=== PATIENT | female | born 1985 | race African-American/Black ===

== ENCOUNTER 2017-02-20 12:36 | Emergency (ER) | payer OTHER ==
[~2017-02-20] VITALS: Ht 165.1 cm; Wt 90.7 kg
[~2017-02-20 12:36] MED LIST: ZOFRAN ODT4 MG PO
[2017-02-20] MEDS ORDERED: DICLOFENAC POTA50 M1 PO (14:14)
[2017-02-20] MEDS ORDERED: AMOXICILLIN500 M2 PO (14:14)
--- NOTE | 2017-02-20 14:15 | ED THROAT/DENTAL COMPLAINT ---
History of Present Illness General Chief Complaint: Sore Throat, Dental Pain Stated Complaint: SORE THROAT Source: patient Exam Limitations: no limitations Vital Signs & Intake/Output Vital Signs & Intake/Output Vital Signs Date Time Temp Pulse Resp B/P B/P Pulse O2 O2 Flow FiO2 Mean Ox Delivery Rate 02/20 1247 98.9 100 18 111/72 96 Room Air Allergies Coded Allergies: NO KNOWN ALLERGIES (08/19/14) Reconcile Medications Ondansetron (Zofran Odt) 4 MG TAB.RAPDIS 1 TAB PO Q8HR PRN NAUSEA Triage Note: PT COMPLAINS OF SORE THROAT X 2 DAYS Triage Nurses Notes Reviewed? yes : No Patient currently breastfeeds: No HPI: Patient presents for evaluation of gradual onset of constant severe achy sore throat pain gets worse with swallowing that began Friday. She has had associated fever and some vomiting. She denies any known ill contacts. Past History Travel History Traveled to [place] past 21 day No Medical History Any Pertinent Medical History? 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 No Review of Systems Review of Systems Constitutional: Reports: no symptoms. EENTM: Reports: see HPI. Respiratory: Reports: no symptoms. Cardiovascular: Reports: no symptoms. GI: Reports: no symptoms. Genitourinary: Reports: no symptoms. Musculoskeletal: Reports: no symptoms. Skin: Reports: no symptoms. Neurological/Psychological: Reports: no symptoms. Hematologic/Endocrine: Reports: no symptoms. Immunologic/Allergic: Reports: no symptoms. All Other Systems: Reviewed and Negative Physical Exam Physical Exam Mouth/Throat: sEE BELOW Comments: Gen.: Well-nourished, well-developed, no acute respiratory distress. Head: Normocephalic, atraumatic. Eyes: Normal inspection bilaterally Ears: Normal inspection bilaterally Nose: Normal inspection Throat/mouth : Moist mucosa, oropharyngeal erythema with white exudates and no uvular deviation Neck: Supple, full range of motion, no goiter, mildly tender anterior lymphadenopathy present Lungs: Quiet respirations Back: Normal range of motion Extremities: Normal range of motion grossly Neurologic: Cranial nerves grossly intact, speech is clear Skin: warm and dry Psychiatric: Calm, cooperative, no apparent delusions or hallucinations Core Measures ACS in differential dx? No Severe Sepsis Present: No Septic Shock Present: No Progress Differential Diagnosis: jorge-tonsillar abscess, strep pharyngitis Plan of Care: Orders Procedure Date/time Status THROAT CULTURE W/QUICK STREP 02/20 1249 Complete Departure Departure Disposition: HOME OR SELF CARE Condition: Stable Clinical Impression Primary Impression: Streptococcal pharyngitis Referrals: PATIENT HAS NO PRIMARY CARE DR (PCP/Family) Additional Instructions: Diclofenac as prescribed for pain. Cool liquids to help soothe your throat. Amoxicillin as prescribed. Follow-up with your primary care doctor in 72 hours if not improving. Return if any concerns or sudden worsening. Thank you for choosing the [facility] Department for your care. It was a pleasure to serve you today. Parmjit Baer M.D. [facility] Departure Forms: Customer Survey General Discharge Information Prescriptions: Current Visit Scripts Amoxicillin 1 TAB PO TID #21 TAB Diclofenac Potassium 1 TAB PO TID PRN PAIN #21 TAB
[2017-02-20 14:31] VITALS: BP 116/80
== END 2017-02-20 14:31 ==
LOC: ERH 12:36
DX: J02.0 Streptococcal pharyngitis (principal); Z72.0 Tobacco use

== ENCOUNTER 2018-04-04 10:44 | Emergency (ER) | payer OTHER ==
[~2018-04-04 10:44] MED LIST changes: +AMOXICILLIN500 M2 PO; +DICLOFENAC POTA50 M1 PO
--- NOTE | 2018-04-04 10:47 | ED GI/GU/ABDOMINAL COMPLAINT ---
History of Present Illness General Chief Complaint: Female Urogenital Problems Stated Complaint: VAG BLEEDING Source: patient Exam Limitations: no limitations Vital Signs & Intake/Output Vital Signs & Intake/Output Vital Signs Date Time Temp Pulse Resp B/P B/P Pulse O2 O2 Flow FiO2 Mean Ox Delivery Rate 04/04 1111 100 Room Air 04/04 1053 98.0 76 18 122/73 100 Room Air Allergies Coded Allergies: NO KNOWN ALLERGIES (04/04/18) Reconcile Medications Amoxicillin 500 MG CAPSULE 1 TAB PO TID INFECTION Diclofenac Potassium 50 MG TABLET 1 TAB PO TID PRN PAIN Triage Nurses Notes Reviewed? yes ? N Is pt currently ? No Onset: Gradual Duration: constant Timing: recent history Quality/Severity: cramping, moderate Severity Numbers: 5 Radiation: no radiation HPI: Patient is a 32-year-old female with a past medical history of iron deficiency anemia who is noncompliant with her iron supplementation who presents emergency room with concerns of a late menstrual period last menstrual period was noted to be February 23 where patient states that yesterday she had a gradual onset of denies abdominal cramping and persistent vaginal bleeding patient has gone through 2 pads. Patient was brought in by ambulance. Patient has associated symptoms of dizziness. Patient TOOK IBUPROFEN yesterday. Denies any fever chills chest pain arm pain jaw pain Patient is able to tolerate by mouth no change in symptoms. Last bowel movement was within the last 24 hours no blood no melena Past History Medical History Any Pertinent Medical History? 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 No Review of Systems Review of Systems Constitutional: Reports: see HPI. EENTM: Reports: no symptoms. Respiratory: Reports: no symptoms. Cardiovascular: Reports: no symptoms. GI: Reports: see HPI. Genitourinary: Reports: see HPI. Musculoskeletal: Reports: no symptoms. Skin: Reports: no symptoms. Neurological/Psychological: Reports: no symptoms. Hematologic/Endocrine: Reports: see HPI, bleeding. Immunologic/Allergic: Reports: no symptoms. All Other Systems: Reviewed and Negative Physical Exam Physical Exam General Appearance: no apparent distress, alert, comfortable, obese Head: atraumatic Eyes: Bilateral: normal appearance. Ears, Nose, Throat, Mouth: moist mucous membrane Neck: normal inspection Respiratory: normal breath sounds Cardiovascular: regular rate/rhythm Gastrointestinal: normal bowel sounds, soft, tenderness Extremities: normal range of motion Skin: intact, normal color, warm/dry Core Measures ACS in differential dx? No Sepsis Present: No Sepsis Focused Exam Completed? No Progress Differential Diagnosis: AAA, AMI, appendicitis, biliary colic, bowel obstruction , colon cancer, cholecystitis, diverticulitis, ectopic , endometritis, esophageal varices, gastritis, hepatitis, hernia, hemorrhoids, ischemic bowel, inflamm bowel dis, intrauterine , kidney stone, ovarian cyst, ovarian torsion, pancreatitis, PID/cervicitis, peptic ulcer, PUD/GERD, perforated viscous, SBO, threatened AB, UTI/pyelo Plan of Care: Orders Procedure Date/time Status URINALYSIS 04/04 105 Active HUMAN BETA HCG SCREEN 04/04 105 Complete COMPREHENSIVE METABOLIC PANEL 04/04 105 Complete CBC WITHOUT DIFFERENTIAL 04/04 105 Complete Laboratory Tests 04/04/18 1107: Anion Gap 9, Estimated GFR > 60, BUN/Creatinine Ratio 24.0, Glucose 94, Calcium 8.7, Total Bilirubin 0.5, AST 13 L, ALT 22, Alkaline Phosphatase 60, Total Protein 6.6, Albumin 3.8, Globulin 2.8, Albumin/Globulin Ratio 1.4, Total Beta HCG NEGATIVE, CBC w Diff NO MAN DIFF REQ, RBC 3.84 L, MCV 78.5 L, MCH 24.6 L, MCHC 31.4 L, RDW 18.1 H, MPV 7.8, Gran % 62.8, Lymphocytes % 27.5, Monocytes % 6.8, Eosinophils % 2.6, Basophils % 0.3, Absolute Granulocytes 3.9, Absolute Lymphocytes 1.7, Absolute Monocytes 0.4, Absolute Eosinophils 0.2, Absolute Basophils 0 Patient upon initial presentation is resting calmly at bedside vital signs unremarkable patient is normotensive Patient's blood work was unremarkable Discussed results with patient due to history of present illness and exam findings patient has suspicion of dysmenorrhea No concerns of appendicitis No right lower quadrant pain no peritoneal signs Patient afebrile Patient was strongly advised to continue taking iron supplementation and follow up with [facility] Upon discharge patient looks well no prior distress Patient was offered and advised a exam however she declines this IN the emergency room patient had improvement of pain with ibuprofen Initial ED EKG: none Departure Departure Disposition: HOME OR SELF CARE Condition: Stable Clinical Impression Primary Impression: Vaginal bleeding Secondary Impressions: Abdominal pain, Dysmenorrhea Referrals: Patient Has No Primary Care Dr (PCP/Family) Jamal CHEN,Oksana Buckner Additional Instructions: As discussed if symptoms worsen or if YOU develop a new concerning symptom return to emergency, follow up and establish [facility] Dr. Berry on Friday. Begin [id number] ibuprofen for pain and inflammation Departure Forms: Customer Survey General Discharge Information
[2018-04-04 11:32] LABS: ABSOLUTE BASOPHIL COUNT 0 /CUMM (0.0-0.2); ABSOLUTE EOSINOPHIL COUNT 0.2 /CUMM (0.0-0.7); ABSOLUTE GRANULOCYTE CT 3.9 /CUMM (1.4-6.5); ABSOLUTE LYMPH COUNT 1.7 /CUMM (1.2-3.4); ABSOLUTE MONOCYTE COUNT 0.4 /CUMM (0.10-0.60); BASOPHIL % 0.3 % (0.0-2.0); EOSINOPHIL % 2.6 % (0-5); GRANULOCYTE % 62.8 % (42.2-75.2); HEMATOCRIT 30.1 % (37-47); MEAN CORPUSCULAR HGB 24.6 PG (27.0-31.0); MEAN CORPUSCULAR HGB CONC 31.4 G/DL (33.0-37.0); MEAN CORPUSCULAR VOLUME 78.5 FL (81.0-99.0); MEAN PLATELET VOLUME 7.8 FL (7.4-10.4); PLATELET COUNT 376 /CUMM (130-400); RBC DISTRIBUTION WIDTH 18.1 % (11.5-14.5); RED BLOOD CELL CT 3.84 /CUMM (4.20-5.40); WHITE BLOOD CELL COUNT 6.3 /CUMM (4.8-10.8)
[2018-04-04 12:12] VITALS: BP 106/56
== END 2018-04-04 12:23 ==
LOC: ERH 10:44
PROVIDERS: Physician Assistant
DX: N94.6 Dysmenorrhea, unspecified (principal)
CPT/HCPCS: 81001

== ENCOUNTER 2018-06-07 08:01 | Emergency (ER) | payer OTHER ==
[~2018-06-07] VITALS: Ht 167.6 cm; Wt 77.1 kg
[2018-06-07 09:43] LABS: ABSOLUTE BASOPHIL COUNT 0 /CUMM (0.0-0.2); ABSOLUTE EOSINOPHIL COUNT 0.2 /CUMM (0.0-0.7); ABSOLUTE GRANULOCYTE CT 4.5 /CUMM (1.4-6.5); ABSOLUTE MONOCYTE COUNT 0.4 /CUMM (0.10-0.60); BASOPHIL % 0.7 % (0.0-2.0); EOSINOPHIL % 2.2 % (0-5); GRANULOCYTE % 63.6 % (42.2-75.2); HEMATOCRIT 29.1 % (37-47); MEAN CORPUSCULAR HGB 24.7 PG (27.0-31.0); MEAN CORPUSCULAR HGB CONC 31.5 G/DL (33.0-37.0); MEAN CORPUSCULAR VOLUME 78.3 FL (81.0-99.0); MEAN PLATELET VOLUME 8.4 FL (7.4-10.4); PLATELET COUNT 324 /CUMM (130-400); RBC DISTRIBUTION WIDTH 16.7 % (11.5-14.5); RED BLOOD CELL CT 3.72 /CUMM (4.20-5.40)
--- NOTE | 2018-06-07 11:28 | CT SCAN REPORT ---
EXAMINATION: CT ABDOMEN AND PELVIS WITH CONTRAST CLINICAL INFORMATION: Periumbilical abdominal pain an swelling with discharge status post umbilical hernia repair 5 years ago. COMPARISON: 05/25/12. 05/16/12. TECHNIQUE: Multidetector volumetric imaging was performed of the abdomen and pelvis following IV administration of 95 mL of Optiray 320 intravenous contrast. Sagittal and coronal reformatted images were obtained on the technologist's workstation. DLP: 702.04 mGy-cm FINDINGS: LUNG BASES: The visualized lung bases are unremarkable. LIVER, GALLBLADDER, AND BILIARY TREE: The liver is normal in size, shape, and attenuation. No focal hepatic lesion or biliary ductal dilatation is present. The gallbladder is unremarkable with no evidence of radiopaque gallstones, gallbladder wall thickening, or obvious pericholecystic inflammatory changes. PANCREAS: Unremarkable. SPLEEN: Unremarkable. ADRENAL GLANDS: Unremarkable. KIDNEYS AND URETERS: The kidneys are normal in size, shape, and attenuation. No hydronephrosis, hydroureter, or calculi seen. No perinephric stranding. A small hypoattenuating cortical lesion in the upper pole of the right kidney measures 0.9 cm and is too small to characterize but likely represents cyst. This is minimally increased from the CT scan of 05/16/12. BLADDER: Unremarkable. GASTROINTESTINAL TRACT: The stomach and duodenum are unremarkable. No abnormality of the small bowel or mesentery is demonstrated. The colon is unremarkable. The appendix is normal. ABDOMINAL WALL: There is soft tissue thickening around the umbilicus. There is a very small defect in the underlying fascia with no significant recurrent hernia. No contained fluid collection is demonstrated. Scattered densities in the anterior abdominal wall presumably represent calcification from previous subcutaneous injections. LYMPH NODES: There 2 mildly enlarged right inguinal lymph nodes. The largest measures 2.0 x 1.3 cm. No other adenopathy. VASCULAR: Unremarkable. PELVIC VISCERA: Unremarkable. There is a cyst in the left ovary measuring 2.9 cm. OSSEOUS STRUCTURES: Unremarkable. IMPRESSION: 1. Nonspecific soft tissue swelling around the umbilicus. There is a very small fascial defect at the site of previous hernia repair with no significant recurrent hernia. No focal fluid collection. 2. Nonspecific right inguinal lymphadenopathy. 3. Small cyst right kidney.
--- NOTE | 2018-06-07 11:48 | ED GI/GU/ABDOMINAL COMPLAINT ---
History of Present Illness General Chief Complaint: Abdominal Pain/Flank Pain Stated Complaint: BIBA ABD PAIN, LEAKING WOUND Source: patient Exam Limitations: no limitations Vital Signs & Intake/Output Vital Signs & Intake/Output Vital Signs Date Time Temp Pulse Resp B/P B/P Pulse O2 O2 Flow FiO2 Mean Ox Delivery Rate 06/07 1243 98.1 74 16 108/57 96 Room Air 06/07 1018 97.2 80 18 110/66 96 Room Air 06/07 0808 97.2 76 20 108/72 98 Room Air ED Intake and Output 06/08 0000 06/07 1200 Intake Total Output Total Balance Patient 170 lb Weight Weight Estimated Measurement Method Allergies Coded Allergies: NO KNOWN ALLERGIES (04/04/18) Reconcile Medications Amoxicillin 500 MG CAPSULE 1 TAB PO TID INFECTION Diclofenac Potassium 50 MG TABLET 1 TAB PO TID PRN PAIN Ibuprofen 800 MG TABLET 1 TAB PO TID PRN PAIN Sulfamethoxazole/Trimethoprim (Bactrim Ds Tablet) 800 MG-160 MG TABLET 1 TAB PO BID CELLULITIS/ABSCESS Triage Note: PT BIBA TO ED FOR C/O ABD PAIN WITH WAKING THIS AM. C/O LOWER ABD LEAKING FROM [place] [place]. THINKS HER HERNIA INSICION FROM 2012 IS LEAKING. PT STATES SHE VOMITED X 1 THIS AM. Triage Nurses Notes Reviewed? yes LMP (ages 10-50): unknown ? n Is pt currently ? No Onset: Abrupt Duration: day(s):, constant, continues in ED Timing: single episode today Quality/Severity: sharpness Severity Numbers: 6 Location: periumbilical Radiation: no radiation Activities at Onset: none Prior Abdominal Problems: similar symptoms HPI: 32-year-old female history of anemia presents for evaluation of periumbilical abdominal pain. Patient reports she has a history of umbilical hernia repair surgery and a umbilical hernia revision surgery done in 2012. She states she has had no problems in this area until she woke up today. She reports pain and discharge (the Local Area. She Also Reports Some Swelling. The Pain Is Worse with Touching the Area. She States the Pain Started While She Was at Rest There Is No Heavy Lifting Straining or Bending. No Fevers. She Reports Some Nausea and One Episode of Vomiting No Diarrhea. No Chest Pain Shortness of Breath. She Is Not a Diabetic. Past History Travel History Traveled to [place] past 21 day No Medical History Any Pertinent Medical History? 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 No Review of Systems Review of Systems Constitutional: Reports: no symptoms. EENTM: Reports: no symptoms. Respiratory: Reports: no symptoms. Cardiovascular: Reports: no symptoms. GI: Reports: see HPI, abdominal pain, nausea, vomiting. Genitourinary: Reports: no symptoms. Musculoskeletal: Reports: no symptoms. Skin: Reports: no symptoms. Neurological/Psychological: Reports: no symptoms. Hematologic/Endocrine: Reports: no symptoms. Immunologic/Allergic: Reports: no symptoms. All Other Systems: Reviewed and Negative Physical Exam Physical Exam General Appearance: well developed/nourished, no apparent distress, alert, awake Head: atraumatic, normal appearance Eyes: Bilateral: normal appearance, EOMI. Ears, Nose, Throat, Mouth: moist mucous membrane Neck: normal inspection, supple, full range of motion Respiratory: normal breath sounds, chest non-tender, no respiratory distress, lungs clear Cardiovascular: regular rate/rhythm, normal peripheral pulses Peripheral Pulses: 2+ radial (R), 2+ radial (L) Gastrointestinal: normal bowel sounds, soft, no organomegaly, tenderness, there is some clear discharge coming from the periumbilical area. Is also some soft tissue swelling and induration in the periumbilical area. No erythema no focal fluctuant areas. No palpable hernia. No evidence of tinea. No erythema Back: normal inspection, normal range of motion, no vertebral tenderness Extremities: normal range of motion Neurologic/Psych: no motor/sensory deficits, awake, alert, oriented x 3, normal gait Skin: intact, normal color, warm/dry Core Measures ACS in differential dx? No Sepsis Present: No Sepsis Focused Exam Completed? No Progress Differential Diagnosis: appendicitis, biliary colic, hernia, incarcerated hernia , strangulated hernia, cellulitis, abscess, tinea Plan of Care: Orders Procedure Date/time Status LACTIC ACID 06/07 0920 Complete Add-on Test (ER Only) 06/07 917 Active URINE 06/07 906 Complete URINALYSIS 06/07 906 Complete LIPASE 06/07 906 Complete HUMAN BETA HCG SCREEN 06/07 906 Complete COMPREHENSIVE METABOLIC PANEL 06/07 906 Complete CBC WITHOUT DIFFERENTIAL 06/07 906 Complete Laboratory Tests 06/07/18 1212: Lactic Acid Cancelled 06/07/18 1137: Urine Color YEL, Urine Clarity CLEAR, Urine pH 6.0, Ur Specific [place] 1.015, Urine Protein NEG, Urine Ketones NEG, Urine Nitrite NEG, Urine Bilirubin NEG, Urine Urobilinogen 0.2, Ur Leukocyte Esterase NEG, Ur Microscopic EXAM NOT REQUIRED, Urine Hemoglobin NEG, Urine Glucose NEG, Urine Test NEGATIVE 06/07/18 09: Anion Gap 5, Estimated GFR > 60, BUN/Creatinine Ratio 30.0 H, Glucose 93, Lactic Acid 0.8, Calcium 8.8, Total Bilirubin 0.2, AST 10 L, ALT 17, Alkaline Phosphatase 52, Total Protein 6.3, Albumin 3.6, Globulin 2.7, Albumin/Globulin Ratio 1.3, Lipase 111, Total Beta HCG NEGATIVE, CBC w Diff NO MAN DIFF REQ, RBC 3.72 L, MCV 78.3 L, MCH 24.7 L, MCHC 31.5 L, RDW 16.7 H, MPV 8.4, Gran % 63.6, Lymphocytes % 28.5, Monocytes % 5.0, Eosinophils % 2.2, Basophils % 0.7, Absolute Granulocytes 4.5, Absolute Lymphocytes 2.0, Absolute Monocytes 0.4, Absolute Eosinophils 0.2, Absolute Basophils 0 06/07/18 0912: Lactic Acid Cancelled Patient is here with periumbilical abdominal pain and some discharge from the umbilicus. On exam she does have some soft tissue swelling and tenderness to the umbilicus. There is some clear discharge. Patient is afebrile. appears well. Labs CT scan ordered patient medicated with Toradol. Labs unremarkable. CT scan shows some nonspecific soft tissue swelling in the area and umbilicus without fluid collection. There is a small fascial defect without hernia. Patient will be covered with antibiotics due to the possibility of a small cellulitis or abscess. Considered the possibility of tinea also considered possibility of a hernia that has reduced itself through the fascial defect. Patient was covered with Bactrim. Advised to apply warm compresses. Avoid straining. Follow-up with Dr. Ortiz who did her surgery a few years ago. Discussed return precautions patient agrees the plan Diagnostic Imaging: Viewed by Me: CT Scan. Discussed w/RAD: CT Scan. Radiology Impression: PATIENT: XANDER SOTO PRESENT AGE: 32 PATIENT ACCOUNT NO: [id number] : 86 LOCATION: [facility] ORDERING PHYSICIAN: Bronson NGUYỄN SERVICE DATE: 06/07/18 EXAM TYPE: CAT - CT ABD & PELVIS W IV CONTRAST EXAMINATION: CT ABDOMEN AND PELVIS WITH CONTRAST CLINICAL INFORMATION: Periumbilical abdominal pain an swelling with discharge status post umbilical hernia repair 5 years ago. COMPARISON: 05/25/12. 05/16/12. TECHNIQUE: Multidetector volumetric imaging was performed of the abdomen and pelvis following IV administration of 95 mL of Optiray 320 intravenous contrast. Sagittal and coronal reformatted images were obtained on the technologist's workstation. DLP: 702.04 mGy-cm FINDINGS: LUNG BASES: The visualized lung bases are unremarkable. LIVER, GALLBLADDER, AND BILIARY TREE: The liver is normal in size, shape, and attenuation. No focal hepatic lesion or biliary ductal dilatation is present. The gallbladder is unremarkable with no evidence of radiopaque gallstones, gallbladder wall thickening, or obvious pericholecystic inflammatory changes. PANCREAS: Unremarkable. SPLEEN: Unremarkable. ADRENAL GLANDS: Unremarkable. KIDNEYS AND URETERS: The kidneys are normal in size, shape , and attenuation. No hydronephrosis, hydroureter, or calculi seen. No perinephric stranding. A small hypoattenuating cortical lesion in the upper pole of the right kidney measures 0.9 cm and is too small to characterize but likely represents cyst. This is minimally increased from the CT scan of 05/16/12. BLADDER: Unremarkable. GASTROINTESTINAL TRACT: The stomach and duodenum are unremarkable. No abnormality of the small bowel or mesentery is demonstrated. The colon is unremarkable. The appendix is normal. ABDOMINAL WALL: There is soft tissue thickening around the umbilicus. There is a very small defect in the underlying fascia with no significant recurrent hernia. No contained fluid collection is demonstrated. Scattered densities in the anterior abdominal wall presumably represent calcification from previous subcutaneous injections. LYMPH NODES: There 2 mildly enlarged right inguinal lymph nodes. The largest measures 2.0 x 1.3 cm. No other adenopathy. VASCULAR: Unremarkable. PELVIC VISCERA: Unremarkable. There is a cyst in the left ovary measuring 2.9 cm. OSSEOUS STRUCTURES: Unremarkable. IMPRESSION: 1. Nonspecific soft tissue swelling around the umbilicus. There is a very small fascial defect at the site of previous hernia repair with no significant recurrent hernia. No focal fluid collection. 2. Nonspecific right inguinal lymphadenopathy. 3. Small cyst right kidney. DICTATED BY: Payton Rai MD DATE/TIME DICTATED:06/07/181103 MAGNETO SPECIALIST:TYE DATE/TIME TRANSCRIBED:06/07/181103 CONFIDENTIAL, DO NOT COPY WITHOUT APPROPRIATE AUTHORIZATION. <Electronically signed in Other Vendor System> SIGNED BY: Payton Rai MD 06/07/18 1128 Initial ED EKG: none Departure Departure Disposition: HOME OR SELF CARE Condition: Stable Clinical Impression Primary Impression: Abdominal pain Qualifiers: Abdominal location: periumbilical Qualified Code: R10.33 - Periumbilical pain Referrals: Patient Has No Primary Care Dr (PCP/Family) Additional Instructions: Take antibiotics as directed for the full course. Apply warm compresses for 15- 20 minutes every few hours. Ibuprofen 800 mg every 8 hours with food as needed for pain. Make a follow-up with your primary care doctor and Dr. Ortiz as soon as possible. If you have worsening pain and redness fever or any other concerns return immediately. Please go over all results of today's visit with your primary care doctor. Contact your primary care doctor to let them know you were here in the emergency room. There may be nonspecific findings which may not be related to your visit today here in the emergency room but may require further evaluation and chronic monitoring by your primary care doctor. If you had a laceration today the chance of foreign body always remains. You should follow-up with your primary care doctor for recheck in 3-5 days for a wound check. If you had an x-ray done there is a chance that a fracture could have been missed on initial read and you should follow-up with your primary care doctor for repeat x-rays if symptoms persist. If your blood pressure was elevated here in the emergency room please have rechecked by [facility] primary care doctor within the next 48. If you were prescribed a narcotic here in the emergency room or any type of controlled substances you're not allowed to drive while taking this medication or operate any type of heavy machinery. Narcotics can make you feel lightheaded dizziness nausea and can cause constipation. You may need to oyster picker a stool softener. Thank you for choosing [facility] emergency room. Please return to the emergency room immediately if you have any other concerns worsening of symptoms. Departure Forms: Customer Survey General Discharge Information Prescriptions: Current Visit Scripts Ibuprofen 1 TAB PO TID PRN PAIN #30 TAB Sulfamethoxazole/Trimethoprim (Bactrim Ds Tablet) 1 TAB PO BID #20 TAB
[2018-06-07] MEDS ORDERED: IBUPROFEN800 M1 PO (12:17)
[2018-06-07] MEDS ORDERED: BACTRIM DS TAB1 EACH PO (12:17)
[2018-06-07 12:43] VITALS: BP 108/57
[2018-06-08] MEDS ORDERED: ULTRAM50 M1 PO (11:37)
== END 2018-06-07 12:53 ==
LOC: ERH 08:01
PROVIDERS: Physician Assistant Medical
DX: R10.33 Periumbilical pain (principal); F17.210 Nicotine dependence, cigarettes, uncomplicated; D64.9 Anemia, unspecified
CPT/HCPCS: 74177; 81003; 81025; 96374; J1885

== ENCOUNTER 2018-06-08 07:02 | Emergency (ER) | payer OTHER ==
[~2018-06-08] VITALS: Ht 167.6 cm; Wt 77.1 kg
[~2018-06-08 07:02] MED LIST changes: +BACTRIM DS TAB1 EACH PO; +IBUPROFEN800 M1 PO
--- NOTE | 2018-06-08 07:36 | ED GI/GU/ABDOMINAL COMPLAINT ---
History of Present Illness General Chief Complaint: Abdominal Pain/Flank Pain Stated Complaint: PT BIBA C/O ABD PAIN Source: patient, old records Exam Limitations: no limitations Vital Signs & Intake/Output Vital Signs & Intake/Output Vital Signs Date Time Temp Pulse Resp B/P B/P Pulse O2 O2 Flow FiO2 Mean Ox Delivery Rate 06/08 0853 98.9 75 20 128/88 99 Room Air 06/08 0703 98.8 76 16 126/92 99 Allergies Coded Allergies: NO KNOWN ALLERGIES (04/04/18) Reconcile Medications Ibuprofen 800 MG TABLET 1 TAB PO TID PRN PAIN Sulfamethoxazole/Trimethoprim (Bactrim Ds Tablet) 800 MG-160 MG TABLET 1 TAB PO BID CELLULITIS/ABSCESS Triage Note: PT BIBA FOR C/O WORSENING ABDOMINAL PAIN AND ONE EPISODE OF +N/V THIS AM. PT WAS SEEN IN ED YESTERDAY FOR ABD PAIN, DX WITH UMBILICAL AREA ABCESS VS CELLULITIS. WAS DISCHARGED ON BACTRIM DS. TOOK ONME DOSE LAST NIGHT "AND IT TORE UP MY STOMACH" STATES DID NOT TAKE BACTRIM THIS AM. "I HAD TO PUSH FOR MY STOOL THIS MORNING AND THAT MADE MY BELLY PAIN WORSE" Triage Nurses Notes Reviewed? yes ? n Is pt currently ? No HPI: Patient presents for evaluation of a periumbilical abdominal pain. She was evaluated in the [facility] emergency department yesterday for similar pain. She had blood tests, urinalysis and a CAT scan of the abdomen with no definitive diagnosis made. The patient was sent home taking ibuprofen and Bactrim. Patient states that after having a bowel movement this morning she had an increase in her periumbilical pain. She vomited once this morning ( nonbilious, nonbloody). Patient states that there was some redness surrounding the umbilicus yesterday she was therefore placed on antibiotic. She states she did have an episode of grayish discharge from the umbilicus this morning. Past History Travel History Traveled to [place] past 21 day No Medical History Any Pertinent Medical History? 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 No Review of Systems Review of Systems Constitutional: Reports: no symptoms. EENTM: Reports: no symptoms. Respiratory: Reports: no symptoms. Cardiovascular: Reports: no symptoms. GI: Reports: see HPI. Genitourinary: Reports: no symptoms. Musculoskeletal: Reports: no symptoms. Skin: Reports: no symptoms. Neurological/Psychological: Reports: no symptoms. Hematologic/Endocrine: Reports: no symptoms. Immunologic/Allergic: Reports: no symptoms. All Other Systems: Reviewed and Negative Physical Exam Physical Exam Gastrointestinal: see below Comments: Gen.: Well-nourished, well-developed, no acute respiratory distress. Head: Normocephalic, atraumatic. Eyes: Normal inspection bilaterally Ears: Normal inspection bilaterally Nose: Normal inspection Throat/mouth : Moist mucosa Neck: Supple, full range of motion, no goiter Lungs: Quiet respirations Abdomen: Soft, mild periumbilical tenderness without rebound or guarding, no umbilical hernia present. Back: Normal range of motion Extremities: Normal range of motion grossly, no cyanosis clubbing or edema of the upper extremities Neurologic: Cranial nerves grossly intact, speech is clear Skin: warm and dry, no abdominal erythema Psychiatric: Calm, cooperative, no apparent delusions or hallucinations Core Measures ACS in differential dx? No Sepsis Present: No Sepsis Focused Exam Completed? No Progress Differential Diagnosis: umbilical hernia, abdominal cellulitis, periumbilical abscess, urinary could fistula Plan of Care: Orders Procedure Date/time Status CBC WITHOUT DIFFERENTIAL 06/08 0743 Complete Laboratory Tests 06/08/18 0800: CBC w Diff NO MAN DIFF REQ, RBC 3.61 L, MCV 78.6 L, MCH 25.0 L, MCHC 31.8 L, RDW 16.9 H, MPV 7.8, Gran % 56.8, Lymphocytes % 33.2, Monocytes % 5.8, Eosinophils % 2.6, Basophils % 1.6, Absolute Granulocytes 3.5, Absolute Lymphocytes 2.0, Absolute Monocytes 0.4, Absolute Eosinophils 0.2, Absolute Basophils 0.1 Initial ED EKG: none Comments: 06/08/2018 10:45:18 AM I have discussed this patient's case with Dr. Ortiz who reviewed his prior surgical reports and the CAT scan. He feels the patient can be seen in follow-up in his office. I have updated Neto on this plan. Departure Departure Disposition: HOME OR SELF CARE Condition: Stable Clinical Impression Primary Impression: Periumbilical abdominal pain Referrals: Patient Has No Primary Care Dr (PCP/Family) Additional Instructions: Continue the ibuprofen and Bactrim as prescribed. You may add tramadol if necessary for pain. Follow-up with Dr. Ortiz this week for reevaluation of your abdominal pain. Return if any concerns or sudden worsening. Please note that there might be incidental findings in your evaluation that are unrelated to the current emergency department visit. Please notify your primary care doctor about this emergency department visit in order to obtain and review all of the testing performed so that these incidental findings can be monitored as needed. If you had an x-ray performed, please understand that some fractures or other findings may not be seen on the initial set of x-rays. If your symptoms persist you might need a repeat set of x-rays to check for such a fracture. If you had a laceration evaluated, please understand that foreign bodies such as glass or wood may not be visible to the naked eye or on plain x-rays. If the wound becomes red, swollen, increasingly more painful or if there is any drainage from the wound, please have it reevaluated by a physician for the possibility of a retained foreign body. If you do not currently have a primary care physician then please contact the [facility] care practice at the following phone number: . If you're unable to follow up as outlined in the discharge instructions please return to the emergency department. Thank you for choosing the [facility] Emergency Department for your care. It was a pleasure to serve you today. Parmjit Baer M.D. [facility] Departure Forms: Customer Survey General Discharge Information
[2018-06-08 08:06] LABS: ABSOLUTE BASOPHIL COUNT 0.1 /CUMM (0.0-0.2); ABSOLUTE EOSINOPHIL COUNT 0.2 /CUMM (0.0-0.7); ABSOLUTE GRANULOCYTE CT 3.5 /CUMM (1.4-6.5); ABSOLUTE MONOCYTE COUNT 0.4 /CUMM (0.10-0.60); BASOPHIL % 1.6 % (0.0-2.0); EOSINOPHIL % 2.6 % (0-5); GRANULOCYTE % 56.8 % (42.2-75.2); HEMATOCRIT 28.4 % (37-47); MEAN CORPUSCULAR HGB CONC 31.8 G/DL (33.0-37.0); MEAN CORPUSCULAR VOLUME 78.6 FL (81.0-99.0); MEAN PLATELET VOLUME 7.8 FL (7.4-10.4); PLATELET COUNT 335 /CUMM (130-400); RBC DISTRIBUTION WIDTH 16.9 % (11.5-14.5); RED BLOOD CELL CT 3.61 /CUMM (4.20-5.40); WHITE BLOOD CELL COUNT 6.2 /CUMM (4.8-10.8)
[2018-06-08 11:25] VITALS: BP 118/78
[2018-06-08] MEDS ORDERED: ULTRAM50 M1 PO (11:37)
== END 2018-06-08 11:31 ==
LOC: ERH 07:02
PROVIDERS: Emergency Medicine
DX: R10.33 Periumbilical pain (principal); F17.210 Nicotine dependence, cigarettes, uncomplicated